=== PATIENT | male | born 1970 | race Caucasian/White ===

== ENCOUNTER → 2023-10-17 | Outpatient (CLI) | payer OTHER ==
--- NOTE | 2023-10-18 15:58 | MR ---
EXAMINATION TYPE: MR shoulder RT wo con DATE OF EXAM: 10/17/2023 COMPARISON: None HISTORY: Right shoulder pain, lack of strength and mobility since April 2023. No known injury TECHNIQUE: Multiplanar, multisequence imaging of the right shoulder is performed without contrast. FINDINGS: There is mild osteoarthritic change of the AC joint. Glenohumeral joint is intact. There is no joint effusion. There is no subdeltoid bursa acromial bursitis. There is no shoulder impi ngement. There is a small focal intrasubstance tear of the infraspinatus tendon just distal to the left. The s ubscapularis and supraspinatus tendons are intact. The biceps tendon is normal in signal intensity and position within the bicipital groove. The biceps anchor is intact. Grossly the cartilaginous labrum is normal. IMPRESSION: 1. Small intrasubstance tear of the infraspinatus as described above. 2. Mild osteoarthritic change of the AC joint without shoulder impingement.
== END | disposition home or self-care (01) ==
LOC: RADMRIMAIN 13:57
PROVIDERS: ATTEND Orthopaedic Surgery Sports Medicine
DX: M19.011 Primary osteoarthritis, right shoulder (principal); M75.101 Unspecified rotator cuff tear or rupture of right shoulder, not specified as traumatic